=== PATIENT | male | born 1935 | race Caucasian/White ===

== ENCOUNTER 2016-05-30 06:33 | Inpatient (IN) | payer MEDICARE ==
[~2016-05-30] VITALS: Ht 177.8 cm; Wt 72.0 kg
[2016-05-30] MEDS ORDERED: DUONEB INH ONE (07:23)
[2016-05-30] MEDS ORDERED: SODIUM CHLORIDE 0.9% 100 ML IV ONE (09:25)
[2016-05-30] MEDS ORDERED: CEFTRIAXONE 1 GM VIAL ONE (09:25)
[2016-05-30] MEDS ORDERED: PHARMACY TO DOSE ZOSYN IV SCH (10:05)
[2016-05-30] MEDS ORDERED: NEB-ALBUTEROL 2.5 MG/3 ML INH PRN (10:05)
[2016-05-30] MEDS ORDERED: SALINE FLUSH 10 ML FLUSH PRN (10:15)
[2016-05-30] MEDS ORDERED: ACETAMINOPHEN 325 MG TAB PO PRN (10:15)
[2016-05-30] MEDS ORDERED: LORAZEPAM 2 MG TAB PO PRN (10:15)
[2016-05-30] MEDS ORDERED: ONDANSETRON 4 MG VIAL IV PRN (10:15)
[2016-05-30] MEDS ORDERED: BISACODYL EC 5 MG TAB PO PRN (10:15)
[2016-05-30] MEDS ORDERED: MAG HYDROX 30 ML UDC PO PRN (10:15)
[2016-05-30] MEDS ORDERED: BISACODYL 10 MG SUPP RECTAL PRN (10:15)
[2016-05-30] MEDS ORDERED: OPTIRAY 350 100 ML VIAL HMH IV ONE (11:03)
[2016-05-30] MEDS: LISINOPRIL 10 MG TAB PO SCH ×2 (12:38→14:42)
[2016-05-30 13:00] VITALS: BP_SYST 127; RESP 16; TEMP 98.3; BMI 24.9
[2016-05-30] MEDS ORDERED: PNEUMO VAC 25 MCG/0.5 ML VL IM.VACC ONE (13:30)
[2016-05-30] MEDS: AZITHROMYCIN 500 MG in SODIUM CHLORIDE 0.9% 250 ML IV SCH (14:41)
[2016-05-30] MEDS: THIAMINE 100 MG TAB PO SCH (14:42)
[2016-05-30] MEDS: MULTIVITS/MINERALS (THERAGRAN M) TAB PO SCH (14:42)
[2016-05-30] MEDS: Furosemide 40 MG/4 ML VIAL IV SCH (14:42)
[2016-05-30] MEDS: GUAIFENESIN ER 600 MG TABCR PO SCH ×2 (14:42→20:45)
[2016-05-30] MEDS: FOLIC ACID 1 MG TAB PO SCH (14:42)
[2016-05-30] MEDS ORDERED: MISSING DOSE XX ONE (15:00)
[2016-05-30] MEDS: DUONEB INH SCH ×2 (15:23→16:59)
[2016-05-30 16:31] VITALS: BP_SYST 103; RESP 18; TEMP 97.6
[2016-05-30] MEDS: PIPERACIL/TAZO 3.375GM/50ML 50 ML IV SCH ×3 (16:37→23:24)
[2016-05-30 17:03] VITALS: RESP 20
[2016-05-30 20:22] VITALS: BP_SYST 104; RESP 16; TEMP 98
[2016-05-30] MEDS: SALINE FLUSH 10 ML FLUSH SCH (20:44)
[2016-05-30 23:12] VITALS: BP_SYST 100; RESP 16; TEMP 97.9
[2016-05-31] VITALS (8 sets, daily range): BP systolic 96–124; RESP 16–66; TEMP 97.4–98.7
[2016-05-31] MEDS: SODIUM CHLORIDE 0.9% FLUSH BAG 500 ML IV SCH (05:06)
[2016-05-31] MEDS: PIPERACIL/TAZO 3.375GM/50ML 50 ML IV SCH ×2 (05:06→11:38)
[2016-05-31] MEDS: DUONEB INH SCH ×3 (06:38→17:23)
[2016-05-31] MEDS: LISINOPRIL 10 MG TAB PO SCH (08:28)
[2016-05-31] MEDS: AZITHROMYCIN 500 MG in SODIUM CHLORIDE 0.9% 250 ML IV SCH (08:31)
[2016-05-31] MEDS: SALINE FLUSH 10 ML FLUSH SCH ×2 (08:31→20:37)
[2016-05-31] MEDS: Furosemide 40 MG/4 ML VIAL IV SCH (08:32)
[2016-05-31] MEDS: THIAMINE 100 MG TAB PO SCH (08:33)
[2016-05-31] MEDS: GUAIFENESIN ER 600 MG TABCR PO SCH ×2 (08:33→20:37)
[2016-05-31] MEDS: MULTIVITS/MINERALS (THERAGRAN M) TAB PO SCH (08:33)
[2016-05-31] MEDS: FOLIC ACID 1 MG TAB PO SCH (08:33)
[2016-05-31] MEDS ORDERED: SODIUM CHLORIDE 0.45% 1,000 ML IV SCH (11:45)
[2016-05-31] MEDS ORDERED: KCL CR 10 MEQ CAP PO ONE (11:45)
[2016-05-31] MEDS: ASPIRIN EC 81 MG TAB PO SCH (17:40)
[2016-05-31] MEDS: Carvedilol 3.125 MG TAB PO SCH (20:37)
[2016-05-31] MEDS: KCL CR 10 MEQ CAP PO SCH (20:37)
[2016-05-31] MEDS: Atorvastatin 10 MG TAB PO SCH (20:37)
[2016-06-01] MEDS: SODIUM CHLORIDE 0.9% FLUSH BAG 500 ML IV SCH (04:44)
[2016-06-01 04:45] VITALS: BP_SYST 152; RESP 18; TEMP 97.9
[2016-06-01] MEDS: DUONEB INH SCH ×3 (07:14→18:40)
[2016-06-01 07:27] VITALS: BP_SYST 125; RESP 18
[2016-06-01] MEDS: SALINE FLUSH 10 ML FLUSH SCH ×2 (08:59→20:32)
[2016-06-01] MEDS: Carvedilol 3.125 MG TAB PO SCH ×2 (09:00→20:31)
[2016-06-01] MEDS: LEVOFLOXACIN 750 MG TAB PO SCH (09:00)
[2016-06-01] MEDS: GUAIFENESIN ER 600 MG TABCR PO SCH ×2 (09:00→20:31)
[2016-06-01] MEDS: MULTIVITS/MINERALS (THERAGRAN M) TAB PO SCH (09:00)
[2016-06-01] MEDS: THIAMINE 100 MG TAB PO SCH (09:00)
[2016-06-01] MEDS: KCL CR 10 MEQ CAP PO SCH ×2 (09:01→20:31)
[2016-06-01] MEDS: FOLIC ACID 1 MG TAB PO SCH (09:01)
[2016-06-01] MEDS: ASPIRIN EC 81 MG TAB PO SCH (09:11)
[2016-06-01 11:21] VITALS: BP_SYST 128; RESP 20; TEMP 98.2
[2016-06-01] MEDS: Furosemide 20 MG TAB PO SCH ×2 (12:00→13:02)
[2016-06-01] MEDS: LISINOPRIL 2.5 MG TAB PO SCH ×2 (12:45→13:02)
[2016-06-01 15:40] VITALS: BP_SYST 128; BP_SYST 131; RESP 18; RESP 20; TEMP 98.2; TEMP 98.7
[2016-06-01 16:03] VITALS: BP_SYST 139; RESP 18; TEMP 98.3
[2016-06-01 19:42] VITALS: BP_SYST 144; RESP 18; TEMP 97.5
[2016-06-01] MEDS: Atorvastatin 10 MG TAB PO SCH (20:31)
[2016-06-02 00:16] VITALS: BP_SYST 130; RESP 18; TEMP 98.3
[2016-06-02 03:37] VITALS: BP_SYST 136; RESP 16; TEMP 98.2
[2016-06-02] MEDS: SODIUM CHLORIDE 0.9% FLUSH BAG 500 ML IV SCH (06:00)
[2016-06-02] MEDS: DUONEB INH SCH ×2 (07:23→11:37)
[2016-06-02 07:58] VITALS: BP_SYST 124; RESP 18; TEMP 97.9
[2016-06-02] MEDS: GUAIFENESIN ER 600 MG TABCR PO SCH (09:22)
[2016-06-02] MEDS: SALINE FLUSH 10 ML FLUSH SCH (09:22)
[2016-06-02] MEDS: Carvedilol 3.125 MG TAB PO SCH (09:22)
[2016-06-02] MEDS: Furosemide 20 MG TAB PO SCH (09:22)
[2016-06-02] MEDS: THIAMINE 100 MG TAB PO SCH (09:22)
[2016-06-02] MEDS: LISINOPRIL 2.5 MG TAB PO SCH (09:22)
[2016-06-02] MEDS: ASPIRIN EC 81 MG TAB PO SCH (09:23)
[2016-06-02] MEDS: FOLIC ACID 1 MG TAB PO SCH (09:23)
[2016-06-02] MEDS: MULTIVITS/MINERALS (THERAGRAN M) TAB PO SCH (09:23)
[2016-06-02] MEDS: KCL CR 10 MEQ CAP PO SCH (09:23)
[2016-06-02] MEDS: LEVOFLOXACIN 750 MG TAB PO SCH (09:23)
[2016-06-02] MEDS ORDERED: Carvedilol 3.125 MG TAB PO ONE (10:13)
[2016-06-02 11:37] VITALS: BP_SYST 120; RESP 18; TEMP 97.7
[2016-06-02 15:43] VITALS: BP_SYST 131; RESP 18; TEMP 98.7
[2016-06-02] MEDS ORDERED: Carvedilol 3.125 MG TAB PO SCH (21:00)
== END 2016-06-02 17:17 | disposition home health service (06) | DRG 292 ==
LOC: ENRESERVTM → ENRESERVDT → ER 06:33 → ENPENDDIS 10:27 → EMR 10:27 → PCU2 12:33
PROVIDERS: ADMIT Internal Medicine; ATTEND Internal Medicine
DX: I11.0 Hypertensive heart disease with heart failure (principal); J90 Pleural effusion, not elsewhere classified; N17.9 Acute kidney failure, unspecified; I50.21 Acute systolic (congestive) heart failure; I34.0 Nonrheumatic mitral (valve) insufficiency; Z87.891 Personal history of nicotine dependence; Z77.22 Contact with and (suspected) exposure to environmental tobacco smoke (acute) (chronic); E78.5 Hyperlipidemia, unspecified; E87.6 Hypokalemia; J20.9 Acute bronchitis, unspecified; R73.9 Hyperglycemia, unspecified; F10.20 Alcohol dependence, uncomplicated; I48.91 Unspecified atrial fibrillation
CPT/HCPCS: 36415; 71010; 71260; 76604; 80048; 80053; 80061; 82553; 83036; 83605; 83615; 83735; 83880; 84100; 84145; 84155; 84439; 84443; 84484; 85025; 85610; 85730; 86738; 87040; 87071; 87278; 87299; 87804; 93005; 93306; 94640; 94799; 96365; 99233